=== PATIENT | female | born 1950 | race Caucasian/White ===

== ENCOUNTER → 2020-07-14 11:01 | Outpatient (CLI) | payer MEDICARE, SELFPAY ==
--- NOTE | 2020-07-14 | DI.MG.S_ITS ---
BILATERAL DIGITAL SCREENING MAMMOGRAM 3D/2D WITH CAD: 07/14/2020 CLINICAL: Routine screening. Comparison is made to exams dated: 08/23/2017 mammogram, 04/01/2003 mammogram, and 07/15/2001 mammogram - [facility]. The tissue of both breasts is heterogeneously dense. This may lower the sensitivity of mammography. Current study was also evaluated with a Computer Aided Detection (CAD) system. No significant masses, calcifications, or other findings are seen in either breast. There has been no significant interval change. IMPRESSION: NEGATIVE There is no mammographic evidence of malignancy. A 1 year screening mammogram is recommended. This exam was interpreted at Station ID: [id number]. NOTE: For mammograms, a report in lay terms will be sent to the patient. Approximately 15% of breast malignancies will not be visualized mammographically. In the management of a palpable breast mass, a negative mammogram must not discourage biopsy of a clinically suspicious lesion. Electronically Signed By: Kwabena manriquez/gail:07/15/2020 13:10:09 letter sent: Normal Exam ACR BI-RADS Category 1: Negative [id number]
--- NOTE | 2020-07-14 | DI.RAD.S_ITS ---
PROCEDURE: XR CHEST 2V INDICATIONS: COUGH TECHNIQUE: 2 views of the chest were acquired. COMPARISON: None. FINDINGS: Surgical changes and devices: None. Lungs and pleura: Mild streaky retrocardiac opacity seen only on the lateral projection. No pleural effusions or pneumothorax. Mediastinum: Mediastinal contours are normal. Heart size is normal. Bones and chest wall: No suspicious bony abnormalities. Scoliosis. Soft tissues appear unremarkable. IMPRESSION: Mild streaky retrocardiac airspace opacity. This could represent atelectasis or scarring. Less likely pneumonia given its linear appearance. Dictated by: Mihir Nicole M.D. on 07/14/2020 at 12:01 Approved by: Mihir Nicole M.D. on 07/14/2020 at 12:03
== END ==
PROVIDERS: Family Provider Family Medicine; PCP Family Medicine; Referring Provider Family Medicine; Visit Provider Family Medicine
DX: Z12.31 Encounter for screening mammogram for malignant neoplasm of breast (principal); M85.851 Other specified disorders of bone density and structure, right thigh; Z78.0 Asymptomatic menopausal state; R05 Cough
CPT/HCPCS: 71046; 77063; 77067; 77080

== ENCOUNTER → 2020-07-18 09:09 | Outpatient (CLI) | payer MEDICARE, SELFPAY ==
--- NOTE | 2020-07-18 | DI.ECHO.S_ITS ---
[place] +---------+ Hospital +---------+ : : [address] : : : : [id number] : : : : Phone: [phone]+ Echocardiogram Report + + :Name: ABHIJEET GONZALEZ Study Date: 07/18/2020 Height: 66 in : :[facility] ReadingLocation: Weight: 142 lb : : Gender: Female BSA: 1.7 m2 : :: 1950 Age: 70 yrs BP: 134/82 mmHg: :Reason For Study: LEFT VENTRICULAR HYPERTROPHY : :Ordering Physician: FELICE, : :SOLO Connor Performed By: Dori Deleon : :Referring: SOLO VIVEROS : + + Interpretation Summary Normal both left and right ventricle size and function. The ejection fraction is 60-65%. Mild biatrial enlargement. Mild tricuspid regurgitation. The ascending aorta is mildly enlarged. Procedure: A two-dimensional transthoracic echocardiogram with color flow and Doppler was performed. The study quality was technically adequate. There is no prior echocardiogram noted for this patient. The patient was in sinus rhythm with heart rates between 73-84 bpm during the exam. Left Ventricle: The left ventricle is normal in size and wall thickness. The ejection fraction is estimated to be 60-65%. There are no focal wall motion abnormalities. Diastolic parameters suggest probable normal left ventricular diastolic function and normal filling pressures. Right Ventricle: The right ventricle is normal in size and function. Atria: There is mild biatrial enlargement. There is no Doppler evidence for an interatrial shunt. Mitral Valve: The mitral valve is normal in structure and function. There is trace mitral regurgitation. Aortic Valve: The aortic valve is trileaflet. The aortic valve opens well. There is no aortic valve stenosis. There is trace aortic regurgitation. Tricuspid Valve: The tricuspid valve is normal in structure and function. There is mild tricuspid regurgitation. The right ventricular systolic pressure is estimated to be at least 28 mmHg based on an estimated right atrial pressure of 3 mm Hg. Pulmonic Valve: The pulmonic valve leaflets are thin and pliable; valve motion is normal. There is no pulmonic valvular regurgitation. Great Vessels: The aortic root is normal size. The ascending aorta is mildly enlarged. The IVC is of normal diameter and collapses greater than 50% with a sniff. This suggests a low right atrial pressure of 3 mm Hg. Pericardium/ Pleura There is no pericardial effusion. There is no pleural effusion. MMode/2D Measurements & Calculations LVIDd: 4.3 cm LVOT diam: 2.0 cm LVIDs: 2.6 cm Ao root diam: 3.1 cm FS: 38.7 % asc Aorta Diam: 3.6 cm EPSS: 0.17 cm Ao Arch Diam (Prox Trans): 2.9 cm IVSd: 0.94 cm LVPWd: 0.89 cm LV malcolm. diameter/BSA (cm/m^2): 2.5 LV sys. diameter/BSA (cm/m^2): 1.5 LA A2 area: 20.9 cm2 RA long axis: 4.5 cm LA A4 area: 17.7 cm2 RA area: 14.7 cm2 LA length (vol): 5.1 cm RA vol: 40.7 ml LA vol: 62.0 ml RA : 23.5 ml/m2 LA vol index: 35.9 ml/m2 IVC diam: 1.6 cm RVD1 (basal): 3.2 cm TAPSE: 1.7 cm Doppler Measurements & Calculations Ao V2 max: 148.2 cm/sec LVOT Max Kunal: 134.7 cm/sec Ao V2 mean: 112.1 cm/sec LV V1 max P.3 mmHg Ao max P.8 mmHg LV V1 VTI: 29.4 cm Ao mean P.5 mmHg WYATT(I,D): 2.7 cm2 Ao V2 VTI: 34.1 cm WYATT(V,D): 2.8 cm2 sev ratio: 0.86 WYATT indexed to BSA (cm^2/m^2): 1.5 MV E max kunal: 88.5 cm/sec TR max kunal: 252.4 cm/sec MV A max kunal: 79.6 cm/sec TR max P.5 mmHg MV E/A: 1.1 PA V2 max: 66.1 cm/sec Med Peak E' Kunal: 8.5 cm/sec PA V2 mean: 47.9 cm/sec E/E' med: 10.5 PA mean P.0 mmHg Lat Peak E' Kunal: 10.5 cm/sec PA pr(Accel): 17.3 mmHg E/E' lat: 8.4 E/e' average: 9.4 MV dec time: 0.21 sec SV(LVOT): 90.8 ml Electronically signed by: Blanca Bashir on Reading Physician:07/18/2020 11:36 AM
== END ==
PROVIDERS: Family Provider Family Medicine; PCP Family Medicine; Referring Provider Family Medicine; Visit Provider Family Medicine
DX: I07.1 Rheumatic tricuspid insufficiency (principal); I11.9 Hypertensive heart disease without heart failure; I77.89 Other specified disorders of arteries and arterioles
CPT/HCPCS: 93306

== ENCOUNTER → 2020-08-01 09:15 | Outpatient (CLI) | payer MEDICARE, SELFPAY ==
--- NOTE | 2020-08-01 09:19 | DI.CT.S_ITS ---
PROCEDURE: CT CHEST WO CON INDICATIONS: Abnormal findings on diagnostic imaging of other s TECHNIQUE: Noncontrast 5 mm thick sections acquired from the pulmonary apices to the posterior costophrenic angles. 1 mm lung window, 5 mm thick coronal and sagittal and 7 mm axial MIP reformats were then acquired. For radiation dose reduction, the following was used: automated exposure control, adjustment of mA and/or kV according to patient size. COMPARISON: [facility], CR, XR CHEST 2V, 07/14/2020, 11:27. FINDINGS: Image quality: Diagnostic given low radiation dose. Lungs and pleura: There are a few linear opacities posteriorly within the lower lobes consistent with atelectasis or scarring. Mild scarring is also demonstrated inferiorly within the right middle lobe and left lingula. No focal consolidation. In the left lower lobe, small 2 mm peripheral nodules are demonstrated on series 3, images 202 and 220. No pleural effusions or pneumothorax. The trachea and central airways appear patent. Mediastinum: Heart size is normal. No pericardial effusion. No mediastinal adenopathy by size criteria. Thoracic aorta and central pulmonary arteries are normal in size. Esophagus is normal in caliber. No hiatal hernia. Bones and chest wall: There is a mild pectus excavatum. No suspicious bony lesions. No vertebral body compression fractures. No axillary or supraclavicular adenopathy by size criteria. Abdomen: Visualized upper abdomen is grossly unremarkable given low radiation dose. IMPRESSION: 1. Mild linear atelectasis or scarring in the lung bases. No acute consolidation. 2. Small 2 mm nodules in the left lower lobe likely represent sequelae of mild infectious or inflammatory processes. Dictated by: Stevie Moscoso M.D. on 08/01/2020 at 11:45 Approved by: Stevie Moscoso M.D. on 08/01/2020 at 11:52
== END ==
PROVIDERS: Family Provider Family Medicine; PCP Family Medicine; Referring Provider Family Medicine; Visit Provider Family Medicine
DX: R93.89 Abnormal findings on diagnostic imaging of other specified body structures (principal); R91.8 Other nonspecific abnormal finding of lung field
CPT/HCPCS: 71250

== ENCOUNTER 2021-07-28 14:40 | Emergency (ER) | payer MEDICARE, SELFPAY ==
[2021-07-28 15:30] VITALS: BP 121/64; PULSE 101; RESP 17; TEMP 36.6; O2SAT 98; BMI 22.1
--- NOTE | 2021-07-28 15:39 | DI.CT.S_ITS ---
PROCEDURE: CT ABDOMEN PELVIS W CON INDICATIONS: rlq pain TECHNIQUE: After the administration of oral and IV contrast, axial sections were acquired from the lung bases to the pubic symphysis. Coronal and sagittal reformats were performed. For radiation dose reduction, the following was used: automated exposure control, adjustment of mA and/or kV according to patient size. COMPARISON: None. FINDINGS: Image quality: Excellent. Lung bases: Unremarkable. Heart: No significant findings. ABDOMEN: Liver: Unremarkable. Gallbladder: Unremarkable. Biliary ducts: Unremarkable. Pancreas: Unremarkable. Spleen: Unremarkable. Adrenal Glands: Unremarkable. Kidneys and Ureters: Unremarkable. Left cortical and parapelvic hypoattenuating lesions are seen measuring up to 3.4 cm, most consistent with cysts. Stomach and Bowel: No evidence of intestinal obstruction. Wall thickening is seen in the cecal region with a 2.4 x 2.5 cm hypoattenuating, peripherally enhancing lesion. Peritoneum: Infiltrative changes of the right pericolic gutter with small volume fluid. No free air. Ventral Wall: No hernia. Abdominal Nodes: No retroperitoneal or mesenteric adenopathy by size criteria. Vessels: Aorta and inferior vena cava are normal in size. PELVIS: Pelvic Organs: Myomatous change of the uterus. 1.4 cm hypoattenuating lesion in the left adnexa, most consistent with an ovarian cyst. Bladder: Not well distended. Pelvic Nodes: No enlarged lymph nodes. Miscellaneous: No inguinal hernias are seen. Bones: Multifocal degenerative change. IMPRESSION: 1. Myomatous change of the uterus. 2. Cecal wall thickening, concerning for an infectious or inflammatory process. 3. Complex contrast enhancing, partially cystic lesion in the right lower quadrant/adnexa. Differential considerations include an abscess, degenerating pedunculated fibroid, versus reactive change of the ovary. Consider pelvic ultrasound for further evaluation. Dictated by: Juan Padilla M.D. on 07/28/2021 at 16:39 Approved by: Juan Padilla M.D. on 07/28/2021 at 16:47
[2021-07-28 15:54] LABS: Add Manual Diff / Slide Review NO; Basophils Absolute Auto 100 /uL (0-100); Basophils Percent Auto 0.6 % (0-2); Eosinophils Absolute Auto 0 /uL (0-450); Eosinophils Percent Auto 0.4 % (2-4); Hematocrit 37.1 % (36-46); Hemoglobin 12.5 g/dL (12.0-16.0); Lymphocytes Absolute Auto 1300 /uL (1100-4500); Lymphocytes Percent Auto 13.4 % (25-40); Mean Corpuscular HGB Conc 33.7 % (30-36); Mean Corpuscular Hemoglobin 29.4 PG (26-34); Mean Corpuscular Volume 87.2 fL (80-100); Monocytes Absolute Auto 600 /uL (0-900); Monocytes Percent Auto 5.8 % (3-14); Neutrophils Absolute Auto 8000 /uL (1500-7000); Neutrophils Percent Auto 79.8 % (50-75); Platelet Count 237 X10^3/uL (150-400); Red Blood Cell Count 4.25 X10^6/uL (4.0-5.2)
[2021-07-28 16:08] LABS: Alanine Aminotransferase 21 IU/L (<35); Albumin 4.4 g/dL (3.5-5.0); Albumin Globulin Ratio 1.2 (1.0-2.8); Alkaline Phosphatase 74 U/L (38-126); Aspartate Aminotransferase 35 IU/L (14-36); BUN Creatinine Ratio 21.1 (6-22); Bilirubin Total 0.6 mg/dL (0.2-1.3); Blood Urea Nitrogen 16 mg/dL (7-17); Calcium 9.8 mg/dL (8.4-10.2); Carbon Dioxide 32 mmol/L (22-32); Chloride 98 mmol/L (98-107); Estimated Glomerular Filt Rate > 60.0 mL/min (>60); Globulin 3.7 g/dL (1.7-4.1); Glucose 114 mg/dL (80-110); HEMOLYSIS 23 (0-50); Lipase 49 U/L (23-300); Potassium 4.3 mmol/L (3.4-5.1); Sodium 136 mmol/L (137-145); Total Protein 8.1 g/dL (6.3-8.2)
[2021-07-28 16:38] LABS: Appearance Urine UA CLEAR; Bilirubin Urine UA NEGATIVE (NEGATIVE); Color Urine UA YELLOW; Glucose Urine UA NEGATIVE (Negative); Ketones Urine UA NEGATIVE (NEGATIVE); Leukocyte Esterase Urine UA TRACE (NEGATIVE); Nitrite Urine UA NEGATIVE (Negative); Occult Blood Urine UA NEGATIVE (Negative); Protein Urine UA NEGATIVE (Negative); Specific Gravity Urine UA <=1.005 (1.000-1.035); Urobilinogen Urine UA 0.2 E.U./dL (0.2)
--- NOTE | 2021-07-28 16:38 | ED.ABDPAIN ---
HPI - Abdominal Pain <Ian White PA-C - Last Filed: 07/28/21 19:52> General Chief Complaint: Abdominal Pain Stated Complaint: r/o appendicitis Time Seen by Provider: 07/28/21 15:46 Source: patient Mode of arrival: Ambulatory History of Present Illness HPI narrative: This is a 71-year-old female presenting to the emergency department due to generalized abdominal pain onset roughly a week ago that has radiated to her right lower quadrant. Patient reports intermittent low-grade fevers of 99-100 degrees F. she also reports nausea with a lack of appetite. Denies any acute vomiting. Patient has not had any abdominal surgeries but does report that she has a uterine fibroid but is unclear of the exact details. Denies diarrhea, constipation, chest pain, shortness of breath, or any other concerning signs or symptoms. Related Data Home Medications Medication Instructions Recorded Confirmed calcium carbonate 600 mg calcium 1,200 mg PO DAILY 09/04/20 07/17/21 (1,500 mg) tablet cholecalciferol (vitamin D3) 10 10 mcg PO DAILY 09/04/20 07/17/21 mcg (400 unit) capsule ciclopirox 8 % topical solution 1 applic TOPICAL BEDTIME 09/04/20 07/17/21 Previous Rx's Medication Instructions Recorded hydroxyzine pamoate 25 mg capsule 25 mg PO BEDTIME #10 cap 04/04/21 zolpidem 5 mg tablet 5 mg PO BEDTIME PRN #30 tab 06/05/21 chlorthalidone 25 mg tablet 25 mg PO DAILY #60 tab 07/17/21 Allergies Allergy/AdvReac Type Severity Reaction Status Date / Time Sulfa (Sulfonamide Allergy Mild RASH Verified 07/28/21 15:33 Antibiotics) codeine Allergy Unknown vomiting Verified 07/28/21 15:33 Review of Systems <Ian White PA-C - Last Filed: 07/28/21 19:52> Review of Systems Narrative: See HPI. Patient History <Ian White PA-C - Last Filed: 07/28/21 19:52> Medical History (Updated 07/28/21 @ 19:47 by Ian White PA-C) Acquired left ventricular hypertrophy Cardiomegaly Disorder of the skin and subcutaneous tissue, unspecified Family history of malignant neoplasm of other organs or systems Social History Smoking Status: Never smoker Smoking Status: Never smoker Alcohol type: other Substance Use Type: does not use Exam <MAYKEL Magallon Last Filed: 07/28/21 19:52> Initial Vital Signs Initial Vital Signs: Vital Signs Temperature 98 F 07/28/21 15:30 Pulse Rate 101 H 07/28/21 15:30 Respiratory Rate 17 07/28/21 15:30 Blood Pressure 121/64 07/28/21 15:30 Pulse Oximetry 98 07/28/21 15:30 Const General: cooperative and healthy appearing Resp Auscultation: clear to auscultation bilaterally Cardio Rate: regular rate Rhythm: regular rhythm GI Palpation: soft Other: Nondistended, mild tenderness palpation to the right lower quadrant Skin General: no rashes or lesions noted Neuro General: patient alert, patient awake and patient oriented x3 Extrem General: normal to inspection Psych Appearance: grossly normal <Yang Cobb DO - Last Filed: 07/29/21 05:10> Initial Vital Signs Initial Vital Signs: Vital Signs Temperature 98 F 07/28/21 15:30 Pulse Rate 101 H 07/28/21 15:30 Respiratory Rate 17 07/28/21 15:30 Blood Pressure 121/64 07/28/21 15:30 Pulse Oximetry 98 07/28/21 15:30 Course <Ian White PA-C - Last Filed: 07/28/21 19:52> Orders Ordered: ED Orders 07/28/21 15:39 CT abdomen pelvis w con Stat 07/28/21 15:45 Complete Blood Count AUTO DIFF Stat Comprehensive Metabolic Panel Stat Lipase Stat 07/28/21 16:17 Urinalysis and Microscopic Stat 07/28/21 16:59 US pelvic complete Stat 07/28/21 19:41 Cancer Antigen 125 Stat Consultations Consultation #1: [id number]: Discussed the pt w/ Dr. Crow of FP/OB who states she would speak to Dr. Cool MATERIAL REQUISITIONER regarding the pt and call back. Vital Signs Vital signs: Vital Signs - 8 hr 07/28/21 15:30 07/28/21 18:02 07/28/21 18:03 Temperature 98 F Pulse Rate 101 H 98 H 97 H Respiratory Rate 17 Blood Pressure 121/64 123/59 L Pulse Oximetry 98 99 <Yang Cobb DO - Last Filed: 07/29/21 05:10> Orders Ordered: ED Orders 07/28/21 15:39 CT abdomen pelvis w con Stat 07/28/21 15:45 Complete Blood Count AUTO DIFF Stat Comprehensive Metabolic Panel Stat Lipase Stat 07/28/21 16:17 Urinalysis and Microscopic Stat 07/28/21 16:59 US pelvic complete Stat 07/28/21 19:41 Cancer Antigen 125 Stat Consultations Consultation #1: [id number]: Discussed the pt w/ Dr. Crow of FP/OB who states she would speak to Dr. Fitch MATERIAL REQUISITIONER regarding the pt and call back. Vital Signs Vital signs: Vital Signs - 8 hr 07/28/21 15:30 07/28/21 18:02 07/28/21 18:03 Temperature 98 F Pulse Rate 101 H 98 H 97 H Respiratory Rate 17 Blood Pressure 121/64 123/59 L Pulse Oximetry 98 99 MDM - Abdominal Pain <Ian White PA-C - Last Filed: 07/28/21 19:52> Lab Data Result diagrams: 07/28/21 15:45 07/28/21 15:45 Labs: Lab Results 07/28/21 07/28/21 07/28/21 Range/Units 15:45 15:45 15:45 WBC 10.0 (4.5-11.0) X10^3/uL RBC 4.25 (4.0-5.2) X10^6/uL Hgb 12.5 (12.0-16.0) g/dL Hct 37.1 (36-46) % MCV 87.2 (80-100) fL MCH 29.4 (26-34) PG MCHC 33.7 (30-36) % RDW 13.0 (11.6-14.8) % Plt Count 237 (150-400) X10^3/uL Neut % (Auto) 79.8 H (50-75) % Lymph % (Auto) 13.4 L (25-40) % [place] % (Auto) 5.8 (3-14) % Eos % (Auto) 0.4 L (2-4) % Baso % (Auto) 0.6 (0-2) % Neut # (Auto) 8000 H (5338-0418) /uL Lymph # (Auto) 1300 (9394-6809) /uL [place] # (Auto) 600 (0-900) /uL Eos # (Auto) 0 (0-450) /uL Baso # (Auto) 100 (0-100) /uL Sodium 136 L (137-145) mmol/L Potassium 4.3 (3.4-5.1) mmol/L Chloride 98 (98-107) mmol/L Carbon Dioxide 32 (22-32) mmol/L BUN 16 (7-17) mg/dL Creatinine 0.76 (0.52-1.04) mg/dL Estimated GFR > 60.0 (>60) mL/min BUN/Creatinine Ratio 21.1 (6-22) Glucose 114 H (80-110) mg/dL Calcium 9.8 (8.4-10.2) mg/dL Total Bilirubin 0.6 (0.2-1.3) mg/dL AST 35 (14-36) IU/L ALT 21 (<35) IU/L Alkaline Phosphatase 74 (38-126) U/L Total Protein 8.1 (6.3-8.2) g/dL Albumin 4.4 (3.5-5.0) g/dL Globulin 3.7 (1.7-4.1) g/dL Albumin/Globulin Ratio 1.2 (1.0-2.8) Lipase 49 (23-300) U/L CA 125 Antigen 26.9 (0-35) U/mL Urine Color Urine Appearance Urine pH (4.5-8.0) Ur Specific [place] (1.000-1.035) Urine Protein (Negative) Urine Glucose (UA) (Negative) g/dL Urine Ketones (NEGATIVE) Urine Occult Blood (Negative) Urine Nitrate (Negative) Urine Bilirubin (NEGATIVE) Urine Urobilinogen (0.2) E.U./dL Ur Leukocyte Esterase (NEGATIVE) Urine RBC (0-5/HPF) Urine WBC (0-5/HPF) Ur Squamous Epith Cells (0-5/HPF) Urine Bacteria (None) Ur Culture Indicated? 07/28/21 Range/Units 16:17 WBC (4.5-11.0) X10^3/uL RBC (4.0-5.2) X10^6/uL Hgb (12.0-16.0) g/dL Hct (36-46) % MCV (80-100) fL MCH (26-34) PG MCHC (30-36) % RDW (11.6-14.8) % Plt Count (150-400) X10^3/uL Neut % (Auto) (50-75) % Lymph % (Auto) (25-40) % [place] % (Auto) (3-14) % Eos % (Auto) (2-4) % Baso % (Auto) (0-2) % Neut # (Auto) (2058-7680) /uL Lymph # (Auto) (7416-3494) /uL [place] # (Auto) (0-900) /uL Eos # (Auto) (0-450) /uL Baso # (Auto) (0-100) /uL Sodium (137-145) mmol/L Potassium (3.4-5.1) mmol/L Chloride (98-107) mmol/L Carbon Dioxide (22-32) mmol/L BUN (7-17) mg/dL Creatinine (0.52-1.04) mg/dL Estimated GFR (>60) mL/min BUN/Creatinine Ratio (6-22) Glucose (80-110) mg/dL Calcium (8.4-10.2) mg/dL Total Bilirubin (0.2-1.3) mg/dL AST (14-36) IU/L ALT (<35) IU/L Alkaline Phosphatase (38-126) U/L Total Protein (6.3-8.2) g/dL Albumin (3.5-5.0) g/dL Globulin (1.7-4.1) g/dL Albumin/Globulin Ratio (1.0-2.8) Lipase (23-300) U/L CA 125 Antigen (0-35) U/mL Urine Color Yellow Urine Appearance Clear Urine pH 7.0 (4.5-8.0) Ur Specific [place] <=1.005 (1.000-1.035) Urine Protein Negative (Negative) Urine Glucose (UA) Negative (Negative) g/dL Urine Ketones Negative (NEGATIVE) Urine Occult Blood Negative (Negative) Urine Nitrate Negative (Negative) Urine Bilirubin Negative (NEGATIVE) Urine Urobilinogen 0.2 (0.2) E.U./dL Ur Leukocyte Esterase Trace H (NEGATIVE) Urine RBC 0-1/hpf (0-5/HPF) Urine WBC 0-1/hpf (0-5/HPF) Ur Squamous Epith Cells 0-1 /hpf (0-5/HPF) Urine Bacteria None seen (None) Ur Culture Indicated? Cult not indicated Imaging Data CT scan - abdomen/pelvis: Radiologist's Impression: [address] [id number] Scan ReportSigned Patient: Cathy Blakely LMR#: [id number]: 8Acct:[id number]/Sex: 71 / FDate of Service: 07/28/21Loc: EDAccession Number: [id number] Procedure: CT abdomen pelvis w con Ordering Provider: [place] D.O. PROCEDURE: CT ABDOMEN PELVIS W CON INDICATIONS: rlq pain TECHNIQUE: After the administration of oral and IV contrast, axial sections were acquired from the lung bases to the pubic symphysis. Coronal and sagittal reformats were performed. For radiation dose reduction, the following was used: automated exposure control, adjustment of mA and/or kV according to patient size. COMPARISON: None. FINDINGS: Image quality: Excellent. Lung bases: Unremarkable. Heart: No significant findings. ABDOMEN: Liver: Unremarkable. Gallbladder: Unremarkable. Biliary ducts: Unremarkable. Pancreas: Unremarkable. Spleen: Unremarkable. Adrenal Glands: Unremarkable. Kidneys and Ureters: Unremarkable. Left cortical and parapelvic hypoattenuating lesions are seen measuring up to 3.4 cm, most consistent with cysts. Stomach and Bowel: No evidence of intestinal obstruction. Wall thickening is seen in the cecal region with a 2.4 x 2.5 cm hypoattenuating, peripherally enhancing lesion. Peritoneum: Infiltrative changes of the right pericolic gutter with small volume fluid. No free air. Ventral Wall: No hernia. Abdominal Nodes: No retroperitoneal or mesenteric adenopathy by size criteria. Vessels: Aorta and inferior vena cava are normal in size. PELVIS: Pelvic Organs: Myomatous change of the uterus. 1.4 cm hypoattenuating lesion in the left adnexa, most consistent with an ovarian cyst. Bladder: Not well distended. Pelvic Nodes: No enlarged lymph nodes. Miscellaneous: No inguinal hernias are seen. Bones: Multifocal degenerative change. IMPRESSION: 1. Myomatous change of the uterus. 2. Cecal wall thickening, concerning for an infectious or inflammatory process. 3. Complex contrast enhancing, partially cystic lesion in the right lower quadrant/adnexa. Differential considerations include an abscess, degenerating pedunculated fibroid, versus reactive change of the ovary. Consider pelvic ultrasound for further evaluation. Dictated by: Juan Padilla M.D. on 07/28/2021 at 16:39 Approved by: Juan Padilla M.D. on 07/28/2021 at 16:[address] [address] ReportSigned Patient: Cathy Blakely LMR#: [id number]: 8Acct:[id number]/Sex: 71 / FDate of Service: 07/28/21Loc: EDAccession Number: [id number] Procedure: US pelvic complete Ordering Provider: Ian White P.A-C Pelvic US : Radiologist's Impression: PROCEDURE: US PELVIC COMPLETE INDICATIONS: R sided abdominal pain TECHNIQUE: Real-time scanning was performed of the pelvic organs, with image documentation. Additional endovaginal scanning was necessary due to incomplete visualization of the adnexal and endometrial structures by transabdominal scanning. COMPARISON: [facility], CT, CT ABDOMEN PELVIS W CON, 07/28/2021, 16:16. FINDINGS: Uterus: Uterus is prominent in size at 10.5 x 6.2 x 6.6 cm. The myometrium is heterogeneous. The endometrium is not well visualized. There are several calcified intrauterine fibroids. 1 is noted in the midline anterior uterus, subserosal/intramural in location measuring 5 x 4.1 x 4.5 cm. Another is seen in the left uterus, subserosal in position. It measures 2.1 x 2.0 x 3.4 cm. Ovaries: The ovaries are not definitively visualized on either side. There is possible adjacent bowel inflammation given findings on comparison CT. Within the right posterior cul-de-sac/right adnexal region, there is a 4.3 x 4.2 x 3.7 cm vascular, heterogeneous mass which may represent the ovary versus adnexal mass. No significant pelvic free fluid. IMPRESSION: Limited evaluation of the pelvic structures secondary to patient scanning characteristics and obscuration secondary to prominent calcified uterine fibroids. There is a nonspecific 4.3 x 4.2 x 3.7 cm hypoechoic, heterogeneous mass in the region of the right adnexa/posterior cul de sac which may represent the ovary or right adnexal mass. This appears to correlate with heterogeneous, enhancing mass seen on comparison CT. There are also inflammatory changes in the vicinity which may represent bowel inflammation as suggested on comparison CT. A vascular ovarian/adnexal mass not excluded. No organized fluid collection seen. Recommend treatment for acute findings and follow-up imaging with contrast enhanced pelvic MRI to further delineate structures. We strive to produce accurate, complete, and clear reports of imaging services. To assist us in improving patient care, this report was composed using standard report templates and voice recognition software. Therefore, it may contain abnormal punctuation, insertions and/or omissions. Occasional wrong-word or sound-alike substitutions may occur. Though we review the report and make efforts to correct it, we do recommend that the report be read carefully in proper context to recognize any text inaccuracies. Dictated by: Kris Sanchez M.D. on 07/28/2021 at 18:26 Approved by: Kris Sanchez M.D. on 07/28/2021 at 18:39 [facility] Narrative Medical decision making narrative: This is a 71-year-old female presents to the emergency department due to abdominal pain over the last week which has radiated to her right lower quadrant. Sent here to rule out appendicitis. Initial lab works showed no acute findings. No evidence of white count. No evidence of UTI other than trace leukocyte esterase although the patient describes having no UTI like symptoms. CT with contrast was ordered of the abdomen and pelvis which showed a complex contrast enhancing partially cystic lesion in the right lower quadrant/adnexal. Recommended pelvic ultrasound for further evaluation. Also showed cecal thickening. Pelvic ultrasound was ordered which showed a nonspecific 4.3 x 4.2 x 3.7 cm hypoechoic, heterogeneous mass in the region of the right adnexa/posterior cul de sac which may represent the ovary or right adnexal mass.Discussed these findings with Dr. Crow FP/OB who spoke with Dr. Fitch regarding the patient. After speaking w/ Dr. Fitch, Dr. Crow recommended ordering a CA 125 and having the patient follow-up with manager estate outpatient. Discussed the plan with the patient who is agreeable with being discharged. <Yang Cobb, - Last Filed: 07/29/21 05:10> Lab Data Labs: Lab Results 07/28/21 07/28/21 07/28/21 Range/Units 15:45 15:45 15:45 WBC 10.0 (4.5-11.0) X10^3/uL RBC 4.25 (4.0-5.2) X10^6/uL Hgb 12.5 (12.0-16.0) g/dL Hct 37.1 (36-46) % MCV 87.2 (80-100) fL MCH 29.4 (26-34) PG MCHC 33.7 (30-36) % RDW 13.0 (11.6-14.8) % Plt Count 237 (150-400) X10^3/uL Neut % (Auto) 79.8 H (50-75) % Lymph % (Auto) 13.4 L (25-40) % [place] % (Auto) 5.8 (3-14) % Eos % (Auto) 0.4 L (2-4) % Baso % (Auto) 0.6 (0-2) % Neut # (Auto) 8000 H (5348-8729) /uL Lymph # (Auto) 1300 (1527-7026) /uL [place] # (Auto) 600 (0-900) /uL Eos # (Auto) 0 (0-450) /uL Baso # (Auto) 100 (0-100) /uL Sodium 136 L (137-145) mmol/L Potassium 4.3 (3.4-5.1) mmol/L Chloride 98 (98-107) mmol/L Carbon Dioxide 32 (22-32) mmol/L BUN 16 (7-17) mg/dL Creatinine 0.76 (0.52-1.04) mg/dL Estimated GFR > 60.0 (>60) mL/min BUN/Creatinine Ratio 21.1 (6-22) Glucose 114 H (80-110) mg/dL Calcium 9.8 (8.4-10.2) mg/dL Total Bilirubin 0.6 (0.2-1.3) mg/dL AST 35 (14-36) IU/L ALT 21 (<35) IU/L Alkaline Phosphatase 74 (38-126) U/L Total Protein 8.1 (6.3-8.2) g/dL Albumin 4.4 (3.5-5.0) g/dL Globulin 3.7 (1.7-4.1) g/dL Albumin/Globulin Ratio 1.2 (1.0-2.8) Lipase 49 (23-300) U/L CA 125 Antigen 26.9 (0-35) U/mL Urine Color Urine Appearance Urine pH (4.5-8.0) Ur Specific [place] (1.000-1.035) Urine Protein (Negative) Urine Glucose (UA) (Negative) g/dL Urine Ketones (NEGATIVE) Urine Occult Blood (Negative) Urine Nitrate (Negative) Urine Bilirubin (NEGATIVE) Urine Urobilinogen (0.2) E.U./dL Ur Leukocyte Esterase (NEGATIVE) Urine RBC (0-5/HPF) Urine WBC (0-5/HPF) Ur Squamous Epith Cells (0-5/HPF) Urine Bacteria (None) Ur Culture Indicated? 07/28/21 Range/Units 16:17 WBC (4.5-11.0) X10^3/uL RBC (4.0-5.2) X10^6/uL Hgb (12.0-16.0) g/dL Hct (36-46) % MCV (80-100) fL MCH (26-34) PG MCHC (30-36) % RDW (11.6-14.8) % Plt Count (150-400) X10^3/uL Neut % (Auto) (50-75) % Lymph % (Auto) (25-40) % [place] % (Auto) (3-14) % Eos % (Auto) (2-4) % Baso % (Auto) (0-2) % Neut # (Auto) (4835-5830) /uL Lymph # (Auto) (4341-2707) /uL [place] # (Auto) (0-900) /uL Eos # (Auto) (0-450) /uL Baso # (Auto) (0-100) /uL Sodium (137-145) mmol/L Potassium (3.4-5.1) mmol/L Chloride (98-107) mmol/L Carbon Dioxide (22-32) mmol/L BUN (7-17) mg/dL Creatinine (0.52-1.04) mg/dL Estimated GFR (>60) mL/min BUN/Creatinine Ratio (6-22) Glucose (80-110) mg/dL Calcium (8.4-10.2) mg/dL Total Bilirubin (0.2-1.3) mg/dL AST (14-36) IU/L ALT (<35) IU/L Alkaline Phosphatase (38-126) U/L Total Protein (6.3-8.2) g/dL Albumin (3.5-5.0) g/dL Globulin (1.7-4.1) g/dL Albumin/Globulin Ratio (1.0-2.8) Lipase (23-300) U/L CA 125 Antigen (0-35) U/mL Urine Color Yellow Urine Appearance Clear Urine pH 7.0 (4.5-8.0) Ur Specific [place] <=1.005 (1.000-1.035) Urine Protein Negative (Negative) Urine Glucose (UA) Negative (Negative) g/dL Urine Ketones Negative (NEGATIVE) Urine Occult Blood Negative (Negative) Urine Nitrate Negative (Negative) Urine Bilirubin Negative (NEGATIVE) Urine Urobilinogen 0.2 (0.2) E.U./dL Ur Leukocyte Esterase Trace H (NEGATIVE) Urine RBC 0-1/hpf (0-5/HPF) Urine WBC 0-1/hpf (0-5/HPF) Ur Squamous Epith Cells 0-1 /hpf (0-5/HPF) Urine Bacteria None seen (None) Ur Culture Indicated? Cult not indicated Discharge Plan Departure Patient Disposition: Home Clinical Impression: Adnexal mass Activity Restrictions/Additional Instructions: Thank you for coming in to our Emergency Department today. During our workup we performed a CT of your abdomen as well as a pelvic ultrasound which showed a nonspecific mass in the area your describing the pain. Your lab work shows no evidence of acute infection but we would very much like you to follow-up with a bench mechanic outpatient. You may speak to your primary care provider for referral to a bench mechanic in your area. You may tell your primary care provider we have ordered a CA 125 and they will be able to follow up with the results of the lab. We are not diagnosing you with a type of cancer but the CA 125 will help with the evaluation. Please follow-up with your primary care provider within the week. Prescriptions: No Action calcium carbonate 600 mg calcium (1,500 mg) tablet 1,200 mg PO DAILY 0RF cholecalciferol (vitamin D3) 10 mcg (400 unit) capsule 10 mcg PO DAILY 0RF ciclopirox 8 % solution 1 applic topical BEDTIME 0RF zolpidem 5 mg tablet 5 mg PO BEDTIME PRN (Reason: insomnia) Qty: 30 2RF chlorthalidone 25 mg tablet 25 mg PO DAILY Qty: 60 0RF hydroxyzine pamoate 25 mg capsule 25 mg PO BEDTIME Qty: 10 1RF Referrals: Charly Rios MD [Primary Care Provider] - <Yang Cobb DO - Last Filed: 07/29/21 05:10> Cosign ED Attending Cosignature Attestation: I was immediately available in the department for consultation. This documentation has been reviewed and I agree with assessment and plan. Supervised by Yang Cobb DO
[2021-07-28 16:53] LABS: Bacteria Urine None Seen; Culture Indicated Urine Cult Not Indicated; RBC Urine 0-1/HPF (0-5/HPF); Squamous Epithelial Cell Urine 0-1 /HPF (0-5/HPF); WBC Urine 0-1/HPF (0-5/HPF)
--- NOTE | 2021-07-28 16:59 | DI.US.S_ITS ---
PROCEDURE: US PELVIC COMPLETE INDICATIONS: R sided abdominal pain TECHNIQUE: Real-time scanning was performed of the pelvic organs, with image documentation. Additional endovaginal scanning was necessary due to incomplete visualization of the adnexal and endometrial structures by transabdominal scanning. COMPARISON: [facility], CT, CT ABDOMEN PELVIS W CON, 07/28/2021, 16:16. FINDINGS: Uterus: Uterus is prominent in size at 10.5 x 6.2 x 6.6 cm. The myometrium is heterogeneous. The endometrium is not well visualized. There are several calcified intrauterine fibroids. 1 is noted in the midline anterior uterus, subserosal/intramural in location measuring 5 x 4.1 x 4.5 cm. Another is seen in the left uterus, subserosal in position. It measures 2.1 x 2.0 x 3.4 cm. Ovaries: The ovaries are not definitively visualized on either side. There is possible adjacent bowel inflammation given findings on comparison CT. Within the right posterior cul-de-sac/right adnexal region, there is a 4.3 x 4.2 x 3.7 cm vascular, heterogeneous mass which may represent the ovary versus adnexal mass. No significant pelvic free fluid. IMPRESSION: Limited evaluation of the pelvic structures secondary to patient scanning characteristics and obscuration secondary to prominent calcified uterine fibroids. There is a nonspecific 4.3 x 4.2 x 3.7 cm hypoechoic, heterogeneous mass in the region of the right adnexa/posterior cul de sac which may represent the ovary or right adnexal mass. This appears to correlate with heterogeneous, enhancing mass seen on comparison CT. There are also inflammatory changes in the vicinity which may represent bowel inflammation as suggested on comparison CT. A vascular ovarian/adnexal mass not excluded. No organized fluid collection seen. Recommend treatment for acute findings and follow-up imaging with contrast enhanced pelvic MRI to further delineate structures. We strive to produce accurate, complete, and clear reports of imaging services. To assist us in improving patient care, this report was composed using standard report templates and voice recognition software. Therefore, it may contain abnormal punctuation, insertions and/or omissions. Occasional wrong-word or sound-alike substitutions may occur. Though we review the report and make efforts to correct it, we do recommend that the report be read carefully in proper context to recognize any text inaccuracies. Dictated by: Kris Sanchez M.D. on 07/28/2021 at 18:26 Approved by: Kris Sanchez M.D. on 07/28/2021 at 18:39
[2021-07-28 18:02] VITALS: PULSE 98
[2021-07-28 18:03] VITALS: BP 123/59; PULSE 97; O2SAT 99
[2021-07-28 20:27] LABS: Cancer Antigen 125 26.9 U/mL (0-35)
== END 2021-07-28 19:55 | disposition home or self-care (01) ==
PROVIDERS: Emergency Medicine; Emergency Provider Physician Assistant Medical; Family Provider Family Medicine; PCP Family Medicine
DX: R19.09 Other intra-abdominal and pelvic swelling, mass and lump (principal)
CPT/HCPCS: 36415; 74177; 76830; 76856; 80053; 81001; 83690; 85025; 86304; 99284

== ENCOUNTER → 2021-08-08 11:46 | Outpatient (CLI) | payer MEDICARE, SELFPAY ==
[2021-08-08 19:12] LABS: BUN Creatinine Ratio 26.8 (6-22); Blood Urea Nitrogen 22 mg/dL (7-17); Calcium 9.6 mg/dL (8.4-10.2); Carbon Dioxide 29 mmol/L (22-32); Chloride 101 mmol/L (98-107); Estimated Glomerular Filt Rate > 60.0 mL/min (>60); Glucose 96 mg/dL (80-110); HEMOLYSIS < 15 (0-50); Potassium 4.3 mmol/L (3.4-5.1); Sodium 137 mmol/L (137-145)
== END ==
PROVIDERS: Family Provider Family Medicine; PCP Family Medicine; Visit Provider Physician Assistant
DX: E87.1 Hypo-osmolality and hyponatremia (principal)
CPT/HCPCS: 80048

== ENCOUNTER → 2021-08-15 11:04 | Outpatient (CLI) | payer MEDICARE, SELFPAY ==
[2021-08-15 19:07] LABS: BUN Creatinine Ratio 25.3 (6-22); Blood Urea Nitrogen 20 mg/dL (7-17); Calcium 9.5 mg/dL (8.4-10.2); Carbon Dioxide 29 mmol/L (22-32); Chloride 106 mmol/L (98-107); Estimated Glomerular Filt Rate > 60.0 mL/min (>60); Glucose 86 mg/dL (80-110); HEMOLYSIS 19 (0-50); Potassium 4.2 mmol/L (3.4-5.1); Sodium 141 mmol/L (137-145)
== END ==
PROVIDERS: Family Provider Family Medicine; PCP Family Medicine; Visit Provider Physician Assistant
DX: E87.1 Hypo-osmolality and hyponatremia (principal); I10 Essential (primary) hypertension
CPT/HCPCS: 80048

== ENCOUNTER 2022-07-20 07:18 | Day surgery (SDC) | payer MEDICARE, OTHER, SELFPAY ==
--- NOTE | 2022-07-20 | PATH_ITS ---
[facility] Accession Number: [id number] No. of containers..04 Tissue . 01 Material submitted: . PART A: gastrointestinal site - GASTRIC BIOPSIES PART B: esophagus, E-G Junction - GE JUNCTION PART C: esophagus - ESOPHAGUS BIOPSIES PART D: colon - ASCENDING COLON POLYP . 01 Diagnosis: A. Stomach, Biopsies: Reactive gastropathy. Negative for Helicobacter by immunohistochemistry. Negative for intestinal metaplasia. Negative for dysplasia and malignancy. . B. Gastroesophageal Junction, Biopsy: Squamocolumnar junctional mucosa with specialized intestinal metaplasia, consistent with Barros's esophagus. Negative for dysplasia and malignancy. . C. Esophagus, Biopsies: Squamous epithelium with no diagnostic abnormality. Intraepithelial eosinophils are not increased. Negative for dysplasia and malignancy. . D. Ascending Colon, Polypectomy: Serrated lesion, favor sessile serrated adenoma. Additional levels were examined. [facility] 07/25/2022 1507 Local . 01 Electronically signed: . Therese Tran MD, Pathologist NPI- [id number] . 01 Gross description: . Part A: GASTRIC BIOPSIES: Received in formalin are 2 fragment(s) of reyez, soft tissue measuring 0.2 x 0.1 x 0.1 cm to 0.2 x 0.1 x 0.1 cm submitted entirely in 1 cassette(s) Part B: GE JUNCTION BIOPSIES Received in formalin are 2 fragment(s) of reyez, soft tissue measuring 0.2 x 0.1 x 0.1 cm to 0.1 x 0.1 x 0.1 cm submitted entirely in 1 cassette(s) Part C: ESOPHAGUS BIOPSIES Received in formalin is 1 fragment(s) of reyez, soft tissue measuring 0.2 x 0.1 x 0.1 cm submitted entirely in 1 cassette(s) /CPE PART D: ASCENDING COLON POLYP Received in formalin is 1 fragment(s) of reyez, soft tissue measuring 0.3 X 0.2 X 0.1 cm submitted entirely in 1 cassette(s) /IVA /CPE 07/23/2022 1923 Local . 01 Microscopic: . A. An immunohistochemical stain was performed to evaluate for Helicobacter organisms and is negative. The control stain showed appropriate reactivity. . * This test was developed and its performance characteristics determined by [facility]. It has not been cleared or approved by the U.S. Food and Drug Administration. The FDA has determined that such clearance or approval is not necessary. This test is used for clinical purposes. It should not be regarded as investigational or for research. . 01 Pathologist provided ICD-10: K22.70, R10.13, D12.2 . 01 CPT . 301118, 083817, 055702, 336096, [id number] Specimen Comment: A courtesy copy of this report has been sent to [facility] Performed at: 01 [facility] [address] [place] [address], [place], [place] [id number] MD Stevie Altman MD Phone: [phone]
[2022-07-20 07:47] VITALS: BMI 22.8
[2022-07-20 07:52] VITALS: BP 128/72; PULSE 85; RESP 12; TEMP 36.2; O2SAT 98
[2022-07-20] MEDS: LACTATED RINGERS 1,000 ML 42 ML IV (08:04)
--- NOTE | 2022-07-20 08:46 | PM.HP.1 ---
History of Present Illness History of Present Illness Chief complaint: EGD/Colonoscopy Narrative: Ms. Blakely has been seen in the office by Dr. Mckeon please see H and P dated from 06/20/2022. She states there has been no changes since that time. In summary she does have some dyspepsia and bloating after eating and that is along with GERD the reason she is been scheduled for an EGD. Additionally she does have a family history of colon cancer with a grandmother who had colon cancer. She her last colonoscopy was in 2017 but she is had issues with prep in the past and maybe not gotten fully complete exams. There was some concern in the transverse colon of some colitis or possible mass. She generally struggles with constipation and says she has a ?slow colon?. No bleeding from below or other symptoms Patient History Medical History Acquired left ventricular hypertrophy Cardiomegaly Disorder of the skin and subcutaneous tissue, unspecified Family history of colon cancer Family history of malignant neoplasm of other organs or systems Family & Social History Social History: household members none Tobacco & Substance use: Smoking Status Never smoker alcohol intake frequency holiday/special occasion Substance Use Type does not use Meds Home Medications and Allergies Home Medications Medication Instructions Recorded Confirmed Type calcium carbonate 600 mg calcium 1,200 mg PO DAILY 09/04/20 07/20/22 History (1,500 mg) tablet cholecalciferol (vitamin D3) 10 10 mcg PO DAILY 09/04/20 07/20/22 History mcg (400 unit) capsule losartan 25 mg tablet 25 mg PO DAILY #90 tabs 10/06/21 07/20/22 Rx alprazolam 0.5 mg tablet 0.25 mg PO BEDTIME PRN insomnia 05/18/22 07/20/22 Rx #30 tabs sodium sul 1.479 gram-potas ch See Rx Instructions PO PER PKG DIR 06/20/22 07/17/22 Rx 0.188 gram-magnes sul 0.225 gram #24 tabs tablet (Sutab) ondansetron 4 mg disintegrating 4 mg PO Q8H #2 tabs 07/04/22 07/20/22 Rx tablet Allergies Allergy/AdvReac Type Severity Reaction Status Date / Time Sulfa (Sulfonamide Allergy Mild RASH Verified 07/20/22 07:43 Antibiotics) codeine Allergy Unknown vomiting Verified 07/20/22 07:43 lisinopril AdvReac Unknown Cough Verified 07/20/22 07:43 Exam Vital Signs (past 8 hours): - 07/20/22 07:52 Temperature 97.1 F L Pulse Rate 85 Respiratory Rate 12 Blood Pressure 128/72 Pulse Oximetry 98 Oxygen Delivery Method Room Air Oxygen Delivery Method Room Air Const General: cooperative, healthy appearing and comfortable Orientation: alert, awake and oriented x3 HENMT Head: normal to inspection Resp Effort & Inspection: normal respiratory effort and able to speak in complete sentences Cardio Pulses: radial pulses present GI Palpation: soft and No tender Assessment & Plan Assessment and plan (1) Dyspepsia: Status: Acute (2) History of colonic polyps: Status: Acute (3) Colon cancer screening: Status: Acute Assessment & Plan narrative: I discussed the risks benefits and alternatives to EGD and a screening colonoscopy with Ms. Blakely she understands the risk of perforation and incomplete exam she would like to proceed. Time Spent With Patient Critical Care time: I spent a total of [] minutes of critical care time on this patient's care today; this time is exclusive of procedural time.
[2022-07-20 09:57] VITALS: BP 105/61; PULSE 77; RESP 12; TEMP 36.1; O2SAT 100
[2022-07-20 10:01] VITALS: BP 100/68; PULSE 74; RESP 12; O2SAT 100
[2022-07-20 10:06] VITALS: BP 111/67; PULSE 74; RESP 13; O2SAT 100
[2022-07-20 10:09] VITALS: BP 111/67; PULSE 72; RESP 15; TEMP 36.1; O2SAT 100
--- NOTE | 2022-07-20 10:11 | PM.OP.EC ---
Operative Date/Time/Diagnoses Pre-op diagnosis: dyspepsia and colon cancer screening, family history of colon cancer. Procedure & Clinicians Study performed: 1. EGD and biopsy 2. Colonoscopy and biopsy Same procedure as scheduled: Yes Surgeon: Ellen Harrison Procedure Notes Procedure in detail: Patient was taken to the endoscopy suite and placed in left lateral decubitus position. A time-out was performed. Conscious sedation was provided by anesthesiologist Dr. Laurent. A bite block was placed and the EGD scope was placed into the mouth and advanced into the esophagus. A hiatal hernia was seen. The scope was advanced into the main gastric body. Some gastritis was appreciated. A photograph was taken. The scope then was advanced into the pylorus which also had the appearance of some irritation. A mucosal biopsy of the gastric body was obtained. The pylorus was intubated and the very 1st portion of the duodenum appeared normal. The scope was then withdrawn and retroflexed to look back at the hiatal hernia from inside the stomach. A photograph was obtained of this view as well. The scope was then withdrawn a biopsy was taken of the GE junction which lay within the hiatal hernia. A photograph was taken of the GE junction as well. The scope was then withdrawn and an additional biopsy of the esophagus was obtained. The patient tolerated this procedure well and the bed was turned around to start with a colonoscopy. A digital rectal exam was performed. There were no masses or strictures. There were small external hemorrhoid seen. The colonoscope was introduced into the anal canal and advanced through to the cecum. A photograph of the appendiceal orifice was obtained. Upon withdrawal of the scope a very small ascending colon polyp was seen and biopsied with Jumbo forceps. Further withdrawal did not reveal any additional polyps or abnormalities. The scope withdrawal time including biopsy was 20 minutes. Specimen(s): other (1. Gastric biopsies 2. GE junction biopsies 3. Esophageal biopsies 4. Ascending colon polyp) Complications: none Post-procedure Recommendations: Colonscopy in 10 years Plan for aftercare: We will follow-up the pathology results but with 1 small polyp if it turns out to be a tubular adenoma the recommendation is a 7-10 year follow-up. Biopsy results will be reported to the patient in a final follow-up recommendation letter.
[2022-07-20 10:20] VITALS: BP 128/72; PULSE 85; RESP 16; TEMP 36.2; O2SAT 98
== END 2022-07-20 10:36 | disposition home or self-care (01) ==
PROVIDERS: Family Provider Family Medicine; PCP Family Medicine; Referring Provider Surgery; Visit Provider Surgery
PROC: 0DJ08ZZ Inspection of Upper Intestinal Tract, Via Natural or Artificial Opening Endoscopic (ICD-10-PCS; CPT 43235; principal; 2022-07-20 08:30)
PROC: 0DJD8ZZ Inspection of Lower Intestinal Tract, Via Natural or Artificial Opening Endoscopic (ICD-10-PCS; CPT 45378; 2022-07-20 08:30)
DX: Z12.11 Encounter for screening for malignant neoplasm of colon (principal); Z80.0 Family history of malignant neoplasm of digestive organs; R10.13 Epigastric pain; K44.9 Diaphragmatic hernia without obstruction or gangrene; K31.9 Disease of stomach and duodenum, unspecified; K22.70 Barrett's esophagus without dysplasia; D12.2 Benign neoplasm of ascending colon
CPT/HCPCS: 45380; 43239; J2250; J3010

== ENCOUNTER → 2022-09-12 10:34 | Outpatient (CLI) | payer MEDICARE, OTHER, SELFPAY ==
[2022-09-12 19:28] LABS: Add Manual Diff / Slide Review NO; Basophils Absolute Auto 100 /uL (0-100); Basophils Percent Auto 0.9 % (0-2); Eosinophils Absolute Auto 100 /uL (0-450); Eosinophils Percent Auto 0.7 % (2-4); Hematocrit 36.1 % (36-46); Hemoglobin 12.2 g/dL (12.0-16.0); Lymphocytes Absolute Auto 3000 /uL (1100-4500); Mean Corpuscular HGB Conc 33.9 % (30-36); Mean Corpuscular Hemoglobin 29.8 PG (26-34); Monocytes Absolute Auto 500 /uL (0-900); Monocytes Percent Auto 5.8 % (3-14); Neutrophils Absolute Auto 4300 /uL (1500-7000); Neutrophils Percent Auto 54.6 % (50-75); Platelet Count 164 X10^3/uL (150-400); Red Cell Distribution Width 13.6 % (11.6-14.8); White Blood Cell Count 7.9 X10^3/uL (4.5-11.0)
[2022-09-12 19:55] LABS: Alanine Aminotransferase 28 IU/L (<35); Albumin 4.2 g/dL (3.5-5.0); Albumin Globulin Ratio 1.5 (1.0-2.8); Alkaline Phosphatase 63 U/L (38-126); Aspartate Aminotransferase 41 IU/L (14-36); BUN Creatinine Ratio 19.5 (6-22); Bilirubin Total 0.6 mg/dL (0.2-1.3); Blood Urea Nitrogen 17 mg/dL (7-17); Calcium 9.3 mg/dL (8.4-10.2); Carbon Dioxide 30 mmol/L (22-32); Chloride 104 mmol/L (98-107); Cholesterol 215 mg/dL (140-199); Estimated Glomerular Filt Rate > 60 mL/min (>60); Globulin 2.8 g/dL (1.7-4.1); Glucose 94 mg/dL (80-110); HDL Cholesterol 73 mg/dL (40-60); HEMOLYSIS < 15 (0-50); LDL Cholesterol Calculated 128 mg/dL (<100); Potassium 4.2 mmol/L (3.4-5.1); Sodium 139 mmol/L (137-145); Triglycerides 68 mg/dL (35-150)
[2022-09-12 20:24] LABS: Cancer Antigen 125 11.7 U/mL (0-35)
[2022-09-12 20:25] LABS: Thyroid Stimulating Hormone 1.55 uIU/mL (0.47-4.68)
== END ==
PROVIDERS: Family Provider Family Medicine; PCP Family Medicine; Visit Provider Family Medicine
DX: I10 Essential (primary) hypertension (principal); N83.8 Other noninflammatory disorders of ovary, fallopian tube and broad ligament; E78.2 Mixed hyperlipidemia
CPT/HCPCS: 80053; 80061; 84443; 85025; 86304

== ENCOUNTER → 2022-09-25 15:32 | Outpatient (CLI) | payer MEDICARE, OTHER, SELFPAY ==
--- NOTE | 2022-09-25 15:35 | DI.US.S_ITS ---
PROCEDURE: US PELVIC COMPLETE INDICATIONS: OVARIAN MASS FOLLOW UP TECHNIQUE: Real-time scanning was performed of the pelvic organs, with image documentation. Additional endovaginal scanning was necessary due to incomplete visualization of the adnexal and endometrial structures by transabdominal scanning. COMPARISON: [facility], CT, CT ABDOMEN PELVIS W CON, 07/28/2021, 16:16. [facility], US, US PELVIC COMPLETE, 07/28/2021, 17:30. [facility], US, US PELVIC COMPLETE, 08/22/2021, 11:59. FINDINGS: Uterus: Uterus is retroverted and normal in size at 11.7 x 5.9 x 5.8 cm. The myometrium is homogeneous. The endometrium is not well seen. Multiple fibroids. -Right intramural measuring 5 cm. -Midline posterior measuring 3.7 cm. -Left anterior subserosal measuring 2.6 cm. Appears mobile with the uterus. Ovaries: Ovaries are not seen. Other: No pathologic free abdominal or pelvic fluid. IMPRESSION: Ovaries are not definitely seen. Endometrium is not well evaluated. Multiple uterine fibroids. Suspect that the previously seen presumed right posterior fibroid is somewhat mobile. Pelvic MRI with IV contrast would be helpful for further characterization and to exclude neoplasm. We strive to produce accurate, complete, and clear reports of imaging services. To assist us in improving patient care, this report was composed using standard report templates and voice recognition software. Therefore, it may contain abnormal punctuation, insertions and/or omissions. Occasional wrong-word or sound-alike substitutions may occur. Though we review the report and make efforts to correct it, we do recommend that the report be read carefully in proper context to recognize any text inaccuracies. Dictated by: Mihir Nicole M.D. on 09/25/2022 at 16:51 Approved by: Mihir Nicole M.D. on 09/25/2022 at 17:01
== END ==
PROVIDERS: Family Provider Family Medicine; PCP Family Medicine; Referring Provider Family Medicine; Visit Provider Family Medicine
DX: N83.8 Other noninflammatory disorders of ovary, fallopian tube and broad ligament (principal); D25.1 Intramural leiomyoma of uterus; D25.2 Subserosal leiomyoma of uterus
CPT/HCPCS: 76830; 76856

== ENCOUNTER → 2022-12-04 13:05 | Outpatient (CLI) | payer MEDICARE, OTHER, SELFPAY ==
[2022-12-04 20:13] LABS: Alanine Aminotransferase 29 IU/L (<35); Albumin 4.1 g/dL (3.5-5.0); Albumin Globulin Ratio 1.6 (1.0-2.8); Alkaline Phosphatase 67 U/L (38-126); Aspartate Aminotransferase 38 IU/L (14-36); Bilirubin Total 0.4 mg/dL (0.2-1.3); Bilirubin Unconjugated 0.2 mg/dL (0.0-1.1); Globulin 2.6 g/dL (1.7-4.1); HEMOLYSIS < 15 (0-50); Total Protein 6.7 g/dL (6.3-8.2)
[2022-12-06 00:36] LABS: HBsAg Screen Negative (Negative); Hepatitis A Antibody IgM Negative (Negative); Hepatitis B Core Antibody IgM Negative (Negative); Hepatitis C Antibody Non Reactive (Non Reactive)
== END ==
PROVIDERS: Family Provider Family Medicine; PCP Family Medicine; Visit Provider Family Medicine
DX: R74.01 Elevation of levels of liver transaminase levels (principal)
CPT/HCPCS: 80074; 80076

== ENCOUNTER → 2024-01-23 09:02 | Outpatient (CLI) | payer MEDICARE, OTHER, SELFPAY ==
[2024-01-23 20:44] LABS: Iron 135 ug/dL (37-170)
[2024-01-23 20:46] LABS: Hematocrit 33.8 % (36-46); Hemoglobin 11.2 g/dL (12.0-16.0); Mean Corpuscular HGB Conc 33.3 % (30-36); Mean Corpuscular Hemoglobin 29.8 PG (26-34); Mean Corpuscular Volume 89.7 fL (80-100); Platelet Count 128 X10^3/uL (150-400); Red Blood Cell Count 3.77 X10^6/uL (4.0-5.2); Red Cell Distribution Width 15.4 % (11.6-14.8); White Blood Cell Count 10.9 X10^3/uL (4.5-11.0)
[2024-01-23 20:49] LABS: HEMOLYSIS 97 (0-50)
[2024-01-23 20:50] LABS: Alanine Aminotransferase 27 IU/L (<35); Albumin 4.2 g/dL (3.5-5.0); Albumin Globulin Ratio 1.6 (1.0-2.8); Alkaline Phosphatase 70 U/L (38-126); Aspartate Aminotransferase 45 IU/L (14-36); BUN Creatinine Ratio 25.6 (6-22); Bilirubin Total 0.6 mg/dL (0.2-1.3); Blood Urea Nitrogen 23 mg/dL (7-17); Calcium 9.7 mg/dL (8.4-10.2); Carbon Dioxide 27 mmol/L (22-32); Chloride 105 mmol/L (98-107); Cholesterol 220 mg/dL (140-199); Estimated Glomerular Filt Rate > 60 mL/min (>60); Globulin 2.7 g/dL (1.7-4.1); Glucose 84 mg/dL (80-110); HDL Cholesterol 66 mg/dL (40-60); HEMOLYSIS 28 (0-50); LDL Cholesterol Calculated 137 mg/dL (<100); Potassium 4.2 mmol/L (3.4-5.1); Sodium 137 mmol/L (137-145); Total Protein 6.9 g/dL (6.3-8.2); Triglycerides 83 mg/dL (35-150)
[2024-01-23 20:57] LABS: Percent Iron Saturation 43 % (15-50); Total Iron Binding Capacity 317 ug/dL (265-497); Transferrin 246 mg/dL (206-381)
[2024-01-23 21:06] LABS: Add Manual Diff / Slide Review YES
[2024-01-23 21:19] LABS: TSH w/ Reflex to FT4 1.98 uIU/mL (0.47-4.68)
[2024-01-23 21:23] LABS: Ferritin 33 ng/mL (11-264)
[2024-01-23 21:40] LABS: Neutrophils Absolute Manual 2834 /uL (3000-5900); Total Cells Counted 100
[2024-01-23 21:41] LABS: Hypochromasia 1+; Rouleaux 2+
== END ==
PROVIDERS: Family Provider Family Medicine; PCP Family Medicine; Referring Provider Family Medicine; Visit Provider Family Medicine
DX: R74.01 Elevation of levels of liver transaminase levels (principal); E87.1 Hypo-osmolality and hyponatremia; E78.2 Mixed hyperlipidemia; I10 Essential (primary) hypertension; G62.9 Polyneuropathy, unspecified
CPT/HCPCS: 80053; 80061; 82728; 83540; 83550; 84443; 85007; 85025; 86038

== ENCOUNTER → 2024-02-04 11:03 | Outpatient (CLI) | payer MEDICARE, OTHER, SELFPAY ==
[2024-02-04 19:44] LABS: Hemoglobin 10.5 g/dL (12.0-16.0); Mean Corpuscular Hemoglobin 30.3 PG (26-34); Mean Corpuscular Volume 89.1 fL (80-100); Platelet Count 149 X10^3/uL (150-400); Red Blood Cell Count 3.48 X10^6/uL (4.0-5.2); Red Cell Distribution Width 14.9 % (11.6-14.8); White Blood Cell Count 13.9 X10^3/uL (4.5-11.0)
[2024-02-04 19:49] LABS: HEMOLYSIS < 15 (0-50)
[2024-02-04 19:55] LABS: Iron 110 ug/dL (37-170)
[2024-02-04 20:06] LABS: Percent Iron Saturation 37 % (15-50); Total Iron Binding Capacity 298 ug/dL (265-497); Transferrin 227 mg/dL (206-381)
[2024-02-04 20:19] LABS: Neutrophils Absolute Manual 5004 /uL (3000-5900); RBC Morphology Normal Morphology; Total Cells Counted 100
[2024-02-04 20:31] LABS: Ferritin 32 ng/mL (11-264)
[2024-02-05 03:34] LABS: Folate 7.6 ng/mL (2.76-20.0); Vitamin B12 815 pg/mL (239-931)
== END ==
PROVIDERS: Family Provider Family Medicine; PCP Family Medicine; Visit Provider Family Medicine
DX: D64.9 Anemia, unspecified (principal); D72.820 Lymphocytosis (symptomatic); R74.01 Elevation of levels of liver transaminase levels; D69.6 Thrombocytopenia, unspecified
CPT/HCPCS: 82607; 82728; 82746; 83540; 83550; 83883; 84155; 84165; 85025; 85045

== ENCOUNTER → 2024-07-28 14:28 | Outpatient (CLI) | payer MEDICARE, OTHER, SELFPAY ==
[2024-07-28 19:48] LABS: Hematocrit 22.3 % (36-46); Hemoglobin 7.4 g/dL (12.0-16.0); Mean Corpuscular HGB Conc 33.4 % (30-36); Mean Corpuscular Hemoglobin 30.2 PG (26-34); Mean Corpuscular Volume 90.6 fL (80-100); Platelet Count 205 X10^3/uL (150-400); Red Blood Cell Count 2.46 X10^6/uL (4.0-5.2); Red Cell Distribution Width 14.9 % (11.6-14.8); White Blood Cell Count 21.8 X10^3/uL (4.5-11.0)
[2024-07-28 19:49] LABS: Add Manual Diff / Slide Review YES
[2024-07-28 19:59] LABS: Alanine Aminotransferase 59 IU/L (<35); Albumin 4.2 g/dL (3.5-5.0); Albumin Globulin Ratio 1.9 (1.0-2.8); Alkaline Phosphatase 65 U/L (38-126); Aspartate Aminotransferase 52 IU/L (14-36); Bilirubin Total 0.4 mg/dL (0.2-1.3); Blood Urea Nitrogen 26 mg/dL (7-17); Calcium 9.3 mg/dL (8.4-10.2); Carbon Dioxide 25 mmol/L (22-32); Chloride 107 mmol/L (98-107); Estimated Glomerular Filt Rate 58 mL/min (>60); Globulin 2.2 g/dL (1.7-4.1); Glucose 97 mg/dL (80-110); HEMOLYSIS < 15 (0-50); Lactate Dehydrogenase 327 U/L (120-246); Potassium 4.4 mmol/L (3.4-5.1); Sodium 140 mmol/L (137-145); Total Protein 6.4 g/dL (6.3-8.2)
[2024-07-28 20:54] LABS: Neutrophils Absolute Manual 2180 /uL (3000-5900); Total Cells Counted 100
[2024-07-28 20:55] LABS: Platelet Estimate Adequate on smear; RBC Morphology Normal Morphology
[2024-07-28 20:56] LABS: Rouleaux 1+; Smudge Cells 1+
== END ==
PROVIDERS: Internal Medicine; Family Provider Family Medicine; PCP Family Medicine
DX: C85.80 Other specified types of non-Hodgkin lymphoma, unspecified site (principal)
CPT/HCPCS: 80053; 83615; 84155; 84165; 85007; 85025